=== PATIENT | female | born 1955 | race Caucasian/White ===

== ENCOUNTER → 2017-11-10 | Outpatient (CLI) | payer OTHER ==
[~2017-11-10] MED LIST: ACET500 PO; ALLO300 PO; ASPI81CH PO; Aspir 8181 MG PO; COLL250TO TOP; CYCL10 PO; FLEXERIL PO; GABA600 PO; GLUC500 PO; Hard Nails2500 MCG PO; LOSA25 PO; METO100ER PO; Multiple Vitam1 EAC1 PO; NAPR220 PO; Norco 5-325 Ta1 EACH PO; OXYC5 PO; Omeprazole20 M1 PO; PRAV20 PO; STOOL SOFTENER100 MG PO; TORSE20 PO; TRAM50 PO; Voltaren100 GM TOP; WOMEN MULTIVIT1 EACH PO; [UNRECOGNIZED DRUG - REMARK] PO
[2017-11-10 15:54] LABS: Source, Urine Clean Catch
[2017-11-10 18:28] LABS: Appearance, Urine Clear (Clear); Bilirubin, Urine Neg (Neg); Blood, Urine Neg (Neg); Color, Urine Yellow (P-Yellow); Glucose Qualitative, Urine Neg (Neg); Ketones, Urine Neg (Neg); Leukocyte Esterase, Urine Neg (Neg); Nitrite, Urine Neg (Neg); Protein, Urine Neg (Neg); Specific Gravity, Urine 1.015 (1.003-1.022); Urobilinogen, Urine NORM (Normal)
== END | disposition home or self-care (01) ==
LOC: LAB 12:16
PROVIDERS: Obstetrics & Gynecology
DX: R35.0 Frequency of micturition (principal)
CPT/HCPCS: 81003

== ENCOUNTER → 2017-12-07 | Outpatient (CLI) | payer OTHER ==
[2017-12-07 13:11] LABS: U Amphetamine Screen Not Detected; U Barbituate Screen Not Detected; U Benzodiazapine Screen Not Detected; U Buprenorphine Screen Not Detected; U Cannabinoids Screen Not Detected; U Cocaine Screen Not Detected; U Methadone Screen Not Detected; U Methamphetamine Screen Not Detected; U Opiates Screen DETECTED; U Oxycodone Screen Not Detected; U Phencyclidine Screen Not Detected; U Propoxyphene Screen Not Detected
[2017-12-08 19:06] LABS: Codeine Not Detected (NOTDET); Hydrocodone Not Detected (NOTDET); Hydromorphone Not Detected (NOTDET); Morphine Not Detected (NOTDET); Norhydrocodone 63 ng/mL (NOTDET); Noroxycodone Not Detected (NOTDET)
== END | disposition home or self-care (01) ==
LOC: LAB 12:34
PROVIDERS: Internal Medicine
DX: Z51.81 Encounter for therapeutic drug level monitoring (principal); Z79.899 Other long term (current) drug therapy
CPT/HCPCS: G0480

== ENCOUNTER 2017-12-30 13:52 | Inpatient (IN) | payer OTHER ==
[~2017-12-30] VITALS: Ht 165.1 cm; Wt 109.8 kg
[~2017-12-30 13:52] MED LIST changes: -ACET500 PO; -ALLO300 PO; -ASPI81CH PO; -GABA600 PO; -Hard Nails2500 MCG PO; -LOSA25 PO; -METO100ER PO; -OXYC5 PO; -PRAV20 PO; -STOOL SOFTENER100 MG PO; -TORSE20 PO; -WOMEN MULTIVIT1 EACH PO; -[UNRECOGNIZED DRUG - REMARK] PO
[2018-01-12] MEDS ORDERED: Omeprazole20 M1 PO (10:55)
[2018-01-12] MEDS ORDERED: METO100ER PO (10:56)
[2018-01-12] MEDS ORDERED: ALLO300 PO (10:57)
[2018-01-12] MEDS ORDERED: [UNRECOGNIZED DRUG - REMARK] PO (11:01)
[2018-01-12] MEDS ORDERED: ACET500 PO (11:01)
[2018-01-12] MEDS ORDERED: Hard Nails2500 MCG PO (11:02)
[2018-01-12] MEDS ORDERED: LOSA25 PO (11:03)
[2018-01-12] MEDS ORDERED: GABA600 PO (11:04)
[2018-01-12] MEDS ORDERED: PRAV20 PO (11:04)
[2018-01-12] MEDS ORDERED: ASPI81CH PO (11:05)
[2018-01-12] MEDS ORDERED: STOOL SOFTENER100 MG PO (11:05)
[2018-01-12] MEDS ORDERED: CYCL10 PO (11:06)
[2018-01-12] MEDS ORDERED: TORSE20 PO (11:07)
[2018-01-12] MEDS ORDERED: WOMEN MULTIVIT1 EACH PO (11:08)
[2018-01-26 04:46] LABS: BASOPHILS ABSOLUTE AUTO 0.03 K/mm3 (0.00-0.23); BASOPHILS PERCENT AUTO 0 % (0-2); EOSINOPHILS PERCENT AUTO 0 % (0-6); Hematocrit 36.3 % (33.0-51.0); Hemoglobin 11.6 g/dL (11.5-16.0); IMMATURE GRAN ABSOLUTE AUTO 0.04 K/mm3 (0.00-0.10); IMMATURE GRAN PERCENT AUTO 0 % (0-1); LYMPHOCYTES ABSOLUTE AUTO 1.35 K/mm3 (0.84-5.20); LYMPHOCYTES PERCENT AUTO 11 % (21-46); MONOCYTES ABSOLUTE AUTO 0.53 K/mm3 (0.16-1.47); MONOCYTES PERCENT AUTO 4 % (4-13); Mean Corpuscular HGB 28.2 pg (26.0-34.0); Mean Corpuscular Volume 88 fL (80-100); Mean Platelet Volume 9.3 fL (9.1-12.4); NEUTROPHILS ABSOLUTE AUTO 10.94 K/mm3 (1.96-9.15); NEUTROPHILS PERCENT AUTO 85 % (41-73); Platelet Count 311 K/mm3 (150-400); RDW Coefficient Variation 15.3 % (11.7-14.2); RDW Standard Deviation 49.3 fL (35.1-46.3); Red Blood Cell Count 4.11 M/mm3 (3.80-5.20); White Blood Cell Count 12.89 K/mm3 (4.00-11.30)
[2018-01-26 05:11] LABS: Anion Gap 7 mmol/L (6-16); Blood Urea Nitrogen 16 mg/dL (8-24); CO2, Blood 26 mmol/L (21-32); Calcium, Blood 8.5 mg/dL (8.5-10.1); Chloride, Blood 104 mmol/L (98-108); Creatinine, Blood 0.89 mg/dL (0.40-1.00); Glomerular Filtration Rate >60 (60-); Glucose, Blood 166 mg/dL (70-99); Magnesium, Blood 2.1 mg/dL (1.6-2.4); Potassium, Blood 4.5 mmol/L (3.5-5.5); Sodium, Blood 137 mmol/L (136-145)
[2018-01-26] MEDS ORDERED: OXYC5 PO (09:28)
== END 2018-01-26 15:46 | disposition home or self-care (01) | DRG 470 ==
LOC: SURS 01-25 10:04 → PRE IP 01-25 13:15 → SURS 01-25 15:47
PROVIDERS: Orthopaedic Surgery
PROC: 3E0234Z Introduction of Serum, Toxoid and Vaccine into Muscle, Percutaneous Approach (ICD-10-PCS; 2018-01-25)
PROC: 0SRD0J9 Replacement of Left Knee Joint with Synthetic Substitute, Cemented, Open Approach (ICD-10-PCS; principal; 2018-01-25 13:15)
DX: M17.12 Unilateral primary osteoarthritis, left knee (principal); E11.22 Type 2 diabetes mellitus with diabetic chronic kidney disease; E11.42 Type 2 diabetes mellitus with diabetic polyneuropathy; I42.9 Cardiomyopathy, unspecified; Z68.41 Body mass index [BMI] 40.0-44.9, adult; N18.3 Chronic kidney disease, stage 3 (moderate); E78.5 Hyperlipidemia, unspecified; I12.9 Hypertensive chronic kidney disease with stage 1 through stage 4 chronic kidney disease, or unspecified chronic kidney disease; Z23 Encounter for immunization; E66.9 Obesity, unspecified
CPT/HCPCS: 36415; 73560-LT; 80048; 82947; 83735; 85025; 88300; 97110; 97116; 97161; 97530; C1713; C1776; G8978; G8979; J0171; J0690; J0735; J1100; J1170; J1885; J2250; J2405; J2795; J3010; J7120

== ENCOUNTER → 2019-07-12 | Outpatient (CLI) | payer OTHER ==
[~2019-07-12] MED LIST changes: +ACET500 PO; +ALLO300 PO; +ASPI81CH PO; +GABA600 PO; +Hard Nails2500 MCG PO; +LOSA25 PO; +METO100ER PO; +OXYC5 PO; +PRAV20 PO; +STOOL SOFTENER100 MG PO; +TORSE20 PO; +WOMEN MULTIVIT1 EACH PO; +[UNRECOGNIZED DRUG - REMARK] PO
[2019-07-12 20:40] LABS: U Amphetamine Screen Not Detected; U Barbituate Screen Not Detected; U Benzodiazapine Screen Not Detected; U Buprenorphine Screen Not Detected; U Cannabinoids Screen Not Detected; U Cocaine Screen Not Detected; U Methadone Screen Not Detected; U Methamphetamine Screen Not Detected; U Opiates Screen Not Detected; U Oxycodone Screen Not Detected; U Phencyclidine Screen Not Detected; U Propoxyphene Screen Not Detected
== END | disposition home or self-care (01) ==
LOC: LAB 12:51 → LAB SHORT 12:51
PROVIDERS: Internal Medicine
DX: Z51.81 Encounter for therapeutic drug level monitoring (principal); Z79.899 Other long term (current) drug therapy

== ENCOUNTER → 2019-12-13 | Outpatient (CLI) | payer MEDICARE ==
[2019-12-13 19:03] LABS: U Amphetamine Screen Not Detected; U Barbituate Screen Not Detected; U Benzodiazapine Screen Not Detected; U Buprenorphine Screen Not Detected; U Cannabinoids Screen Not Detected; U Cocaine Screen Not Detected; U Methadone Screen Not Detected; U Methamphetamine Screen Not Detected; U Opiates Screen Not Detected; U Oxycodone Screen Not Detected; U Propoxyphene Screen Not Detected
== END | disposition home or self-care (01) ==
LOC: LAB SHORT 17:51 → LAB 17:51
PROVIDERS: Nurse Practitioner Family
DX: Z51.81 Encounter for therapeutic drug level monitoring (principal); Z79.899 Other long term (current) drug therapy

== ENCOUNTER 2021-11-18 07:54 | Day surgery (SDC) | payer MEDICARE, OTHER ==
[~2021-11-18] VITALS: Ht 162.6 cm; Wt 112.8 kg
[~2021-11-18 07:54] MED LIST changes: +MERIBIN5 MG PO; +METF500 PO; +MULVITA PO
--- NOTE | 2021-11-18 19:43 | NUR ---
SHIFT SUMMARY PT A&OX4, VSS/RA, VOIDING, MICK PO, AMBULATING FWW/GB, UP TO CHAIR, REFUSED INSULIN. S/P R TKA AQUACEL CDI. PHYSICAL THERAPY STONE. REPORT TO NAIMA WILLIS.
--- NOTE | 2021-11-19 03:36 | NUR ---
SHIFT SUMMARY A/O X. POD1 R TKA, AQUACEL AND POLAR PACK IN PLACE, DRESSING C/D/I. VSS. AMBULATING WITH FWW AND GAITBELT, STAND BY ASSIST. TOLERATING PO INTAKE, VOIDING WELL. PAIN BEING MANAGED WITH PO PAIN MEDICATIONS. WILL CONINUE TO MONITOR AND REPORT TO ONCOMING RN.
[2021-11-19 04:54] LABS: BASOPHILS ABSOLUTE AUTO 0.02 K/mm3 (0.00-0.23); BASOPHILS PERCENT AUTO 0 % (0-2); EOSINOPHILS PERCENT AUTO 0 % (0-6); Hematocrit 36.8 % (33.0-51.0); Hemoglobin 11.8 g/dL (11.5-16.0); IMMATURE GRAN ABSOLUTE AUTO 0.05 K/mm3 (0.00-0.10); IMMATURE GRAN PERCENT AUTO 0 % (0-1); LYMPHOCYTES PERCENT AUTO 10 % (21-46); MONOCYTES ABSOLUTE AUTO 0.71 K/mm3 (0.16-1.47); MONOCYTES PERCENT AUTO 5 % (4-13); Mean Corpuscular HGB 27.8 pg (26.0-34.0); Mean Corpuscular HGB Conc 32.1 g/dL (31.5-36.5); Mean Corpuscular Volume 87 fL (80-100); Mean Platelet Volume 9.2 fL (9.1-12.4); NEUTROPHILS PERCENT AUTO 85 % (41-73); Platelet Count 314 K/mm3 (150-400); RDW Coefficient Variation 17.3 % (11.7-14.2); Red Blood Cell Count 4.24 M/mm3 (3.80-5.20); White Blood Cell Count 15.38 K/mm3 (4.00-11.30)
[2021-11-19 06:14] LABS: Anion Gap 7 mmol/L (6-16); Blood Urea Nitrogen 19 mg/dL (8-24); Bun/Creatinine Ratio 20.7 (12.0-20.0); CO2, Blood 26 mmol/L (21-32); Calcium, Blood 8.6 mg/dL (8.5-10.1); Chloride, Blood 106 mmol/L (98-108); Creatinine, Blood 0.92 mg/dL (0.40-1.00); Glomerular Filtration Rate >60 (60-); Glucose, Blood 158 mg/dL (70-99); Magnesium, Blood 1.7 mg/dL (1.6-2.4); Potassium, Blood 4.6 mmol/L (3.5-5.5); Sodium, Blood 139 mmol/L (136-145)
[2021-11-19] MEDS ORDERED: ACET500 PO (10:05)
[2021-11-19] MEDS ORDERED: OXYC5 PO (10:05)
--- NOTE | 2021-11-19 11:55 | NUR ---
DISCHARGE PT HAS CLEARED THERAPY. PAIN WELL CONTROLLED. EATING, DRINKING, & VOIDING WELL. DRSGS & POLAR PACK SENT w/ PT. SCRIPT PREVIOUSLY SENT w/ DAUGHTER. ESCORTED OUT VIA W/C.
--- NOTE | 2021-11-19 12:13 | NUR ---
11/19/21 1213 Sheyla Madrigal VERIFICATIONS: EDIT CHART.
== END 2021-11-19 11:47 | disposition home or self-care (01) ==
LOC: ORSCMMR 07:54 → SURS 13:32 → ORSCMMR 11-19 11:47
PROVIDERS: Orthopaedic Surgery
PROC: 0SRC0JA Replacement of Right Knee Joint with Synthetic Substitute, Uncemented, Open Approach (ICD-10-PCS; principal; 2021-11-18 10:30)
DX: M17.11 Unilateral primary osteoarthritis, right knee (principal); I10 Essential (primary) hypertension; E11.40 Type 2 diabetes mellitus with diabetic neuropathy, unspecified; E78.00 Pure hypercholesterolemia, unspecified; E66.01 Morbid (severe) obesity due to excess calories; Z68.41 Body mass index [BMI] 40.0-44.9, adult; Z79.84 Long term (current) use of oral hypoglycemic drugs; Z79.899 Other long term (current) drug therapy
CPT/HCPCS: 36415; 73560-RT; 80048; 82947; 83735; 85025; 97110; 97110-CQ; 97116-CQ; 97161; 97530-CQ; A9270; C1776; J0171; J0690; J0735; J1100; J1815; J1885; J2370; J2405; J2704; J2765; J2795; J3010; J7120

== ENCOUNTER 2022-12-26 07:12 | Day surgery (SDC) | payer MEDICARE, OTHER ==
[~2022-12-26] VITALS: Ht 165.1 cm; Wt 103.7 kg
[2022-12-26] MEDS ORDERED: Norco 5-325 Ta1 EACH PO (08:12)
--- NOTE | 2022-12-26 09:17 | NUR ---
12/26/22 0917 Carmen Alas PILLOW UNDER HEAD, ARMS SECURED ON PADDED ARM BOARDS.
--- NOTE | 2022-12-26 10:16 | NUR ---
12/26/22 1016 Lulu Purvis DC'D AT 1013; O2 SATS WERE 100%. PT NOW HAS O2 SATS OF 96% ON ROOM AIR.
--- NOTE | 2022-12-26 14:09 | NUR ---
12/26/22 1409 Mao Siegel PT'S SPO2 READING PERIODICALLY DROPPED TO LOW 90'S AND OCCASIONALLY HIGH 80'S IN STEP DOWN. O2 READINGS WOULD RETURN TO >95 SOON PROBE WAS ADJUSTED ON FINGER, TOE, OR EAR. PT REPORTED NO DIZZINESS, SHORTNESS OF BREATH, OR OTHER SIGNS/SYMPTOMS OF HYPOXIA.
== END 2022-12-26 11:35 | disposition home or self-care (01) ==
LOC: ORSCSDS 07:12
PROVIDERS: Podiatrist Foot & Ankle Surgery
PROC: 0QSN04Z Reposition Right Metatarsal with Internal Fixation Device, Open Approach (ICD-10-PCS; principal; 2022-12-26 08:45)
PROC: 0QBN0ZZ Excision of Right Metatarsal, Open Approach (ICD-10-PCS; principal; 2022-12-26 08:45)
DX: M20.41 Other hammer toe(s) (acquired), right foot (principal); E03.9 Hypothyroidism, unspecified; E78.5 Hyperlipidemia, unspecified; E11.40 Type 2 diabetes mellitus with diabetic neuropathy, unspecified; I10 Essential (primary) hypertension; K21.9 Gastro-esophageal reflux disease without esophagitis; J44.9 Chronic obstructive pulmonary disease, unspecified; E66.01 Morbid (severe) obesity due to excess calories; Z68.38 Body mass index [BMI] 38.0-38.9, adult; Z79.84 Long term (current) use of oral hypoglycemic drugs; Z79.899 Other long term (current) drug therapy; Z87.891 Personal history of nicotine dependence
CPT/HCPCS: 82947; A9270; C1713; C1769; J0171; J0690; J1100; J2250; J2405; J2704; J2795; J3010; J7120